=== PATIENT | male | born 1995 | race African-American/Black ===

== ENCOUNTER 2022-01-08 16:33 | Emergency (ER) | payer BC ==
[~2022-01-08] VITALS: Ht 167.6 cm; Wt 65.8 kg
[2022-01-08] MEDS ORDERED: ONDANSETRON ODT4 MG PO (16:45)
[2022-01-08] MEDS ORDERED: DICYCLOMINE HCL20 MG PO (16:45)
== END 2022-01-08 16:53 | disposition home or self-care (01) ==
LOC: ER 16:40
DX: R11.2 Nausea with vomiting, unspecified (principal); K52.9 Noninfective gastroenteritis and colitis, unspecified
CPT/HCPCS: 99282